=== PATIENT | female | born 1945 | race Two or more races ===

== ENCOUNTER → 2020-01-18 13:57 | Outpatient (CLI) | payer OTHER ==
[~2020-01-18 13:57] MED LIST: CRESTOR20 MG PO; METFORMIN HCL500 M3 PO; ULTRAM50 MG PO; ZESTRIL20 MG PO
== END | disposition home or self-care (01) ==
LOC: LAB 13:57
PROVIDERS: ATTEND Surgery
DX: Z03.818 Encounter for observation for suspected exposure to other biological agents ruled out (principal); C20 Malignant neoplasm of rectum; K92.2 Gastrointestinal hemorrhage, unspecified

== ENCOUNTER 2020-01-25 06:10 | Day surgery (SDC) | payer OTHER ==
[~2020-01-25 06:10] MED LIST changes: -ULTRAM50 MG PO
[2020-01-25] MEDS ORDERED: ULTRAM50 MG PO (14:29)
== END 2020-01-25 15:50 | disposition home or self-care (01) ==
LOC: CIR.AMB 06:10
PROVIDERS: ATTEND Surgery
DX: C20 Malignant neoplasm of rectum (principal)
CPT/HCPCS: 36561; C1751

== ENCOUNTER 2020-08-11 11:30 | Inpatient (IN) | payer OTHER ==
[~2020-08-11] VITALS: Ht 160 cm; Wt 71.7 kg
[~2020-08-11 11:30] MED LIST changes: +ULTRAM50 MG PO
[2020-08-25] MEDS ORDERED: ULTRAM50 MG PO (09:08)
[2020-08-25] MEDS ORDERED: KETO10TA2 PO (09:09)
== END 2020-08-25 11:29 | disposition home or self-care (01) | DRG 331 ==
LOC: SURH 08-17 11:00 → O/R 08-22 06:25 → SURH 08-22 13:47
PROVIDERS: ADMIT Surgery; ATTEND Surgery
PROC: 0DBP7ZZ Excision of Rectum, Via Natural or Artificial Opening (ICD-10-PCS; 2020-08-22)
PROC: 0DJD8ZZ Inspection of Lower Intestinal Tract, Via Natural or Artificial Opening Endoscopic (ICD-10-PCS; 2020-08-22)
PROC: 0D1B4Z4 Bypass Ileum to Cutaneous, Percutaneous Endoscopic Approach (ICD-10-PCS; principal; 2020-08-22 07:00)
DX: C20 Malignant neoplasm of rectum (principal); K59.09 Other constipation

== ENCOUNTER 2020-08-22 06:14 | Outpatient (CLI) | payer OTHER | END 2020-08-22 18:50 | disposition home or self-care (01) | LOC: LAB 06:14 | PROVIDERS: ATTEND Surgery | DX: C20 Malignant neoplasm of rectum (principal); K92.2 Gastrointestinal hemorrhage, unspecified; K59.09 Other constipation ==

== ENCOUNTER 2021-01-02 12:15 | Inpatient (IN) | payer OTHER ==
[~2021-01-02] VITALS: Ht 160 cm; Wt 72.1 kg
[~2021-01-02 12:15] MED LIST changes: +KETO10TA2 PO
[2021-01-19] MEDS ORDERED: NEURONTIN300 MG PO (10:27)
[2021-01-19] MEDS ORDERED: ULTRAM50 MG PO (10:27)
[2021-01-19] MEDS ORDERED: INTESTINEX680 M1 PO (10:28)
== END 2021-01-19 11:28 | disposition home or self-care (01) | DRG 349 ==
LOC: ADM 12:15 → EDSTATUS 01-12 12:30 → ADM 01-12 12:30 → SURG 01-16 05:23 → O/R 01-16 05:23 → SURG 01-16 11:24 → SURH 01-16 12:30 → SURG 01-19 11:28
PROVIDERS: ADMIT Surgery; ATTEND Surgery
PROC: 0D7Q8ZZ Dilation of Anus, Via Natural or Artificial Opening Endoscopic (ICD-10-PCS; 2021-01-16)
PROC: 3E0F7SF Introduction of Other Gas into Respiratory Tract, Via Natural or Artificial Opening (ICD-10-PCS; 2021-01-16)
PROC: 0DBB4ZZ Excision of Ileum, Percutaneous Endoscopic Approach (ICD-10-PCS; principal; 2021-01-16 11:15)
DX: C20 Malignant neoplasm of rectum (principal); K62.4 Stenosis of anus and rectum; E11.9 Type 2 diabetes mellitus without complications; Z79.4 Long term (current) use of insulin; I10 Essential (primary) hypertension; E78.00 Pure hypercholesterolemia, unspecified; F43.20 Adjustment disorder, unspecified

== ENCOUNTER 2021-04-06 16:48 | Inpatient (IN) | payer OTHER ==
[~2021-04-06] VITALS: Ht 162.6 cm; Wt 72.6 kg
[~2021-04-06 16:48] MED LIST changes: +INTESTINEX680 M1 PO; +NEURONTIN300 MG PO
[2021-04-07] MEDS ORDERED: ALLOPURINOL100 MG (08:21)
[2021-04-07] MEDS ORDERED: ULTRAM50 MG PO (17:08)
[2021-04-07] MEDS ORDERED: XARELTO15 MG PO (17:09)
== END 2021-04-07 19:20 | disposition home or self-care (01) | DRG 300 ==
LOC: ER 16:48 → SURG 18:27 → SURH 18:27
PROVIDERS: ADMIT Surgery; ATTEND Surgery
PROC: 0JPV0WZ Removal of Totally Implantable Vascular Access Device from Upper Extremity Subcutaneous Tissue and Fascia, Open Approach (ICD-10-PCS; principal; 2021-04-06)
DX: I82.601 Acute embolism and thrombosis of unspecified veins of right upper extremity (principal); I87.1 Compression of vein; T82.868A Thrombosis due to vascular prosthetic devices, implants and grafts, initial encounter; C20 Malignant neoplasm of rectum; Y65.8 Other specified misadventures during surgical and medical care; Y92.018 Other place in single-family (private) house as the place of occurrence of the external cause; Z20.822 Contact with and (suspected) exposure to COVID-19; I10 Essential (primary) hypertension; E11.9 Type 2 diabetes mellitus without complications; Z79.4 Long term (current) use of insulin

== ENCOUNTER 2022-09-07 09:04 | Inpatient (IN) | payer OTHER ==
[~2022-09-07] VITALS: Ht 160 cm; Wt 66.7 kg
[~2022-09-07 09:04] MED LIST changes: +ALLOPURINOL100 MG; +XARELTO15 MG PO
[2022-09-10] MEDS ORDERED: CAMPTOSAR40 MG/2 ML IV (13:44)
[2022-09-10] MEDS ORDERED: XELODA150 MG PO (13:44)
[2022-09-10] MEDS ORDERED: ATIVAN0.5 M1 PO (13:45)
[2022-09-10] MEDS ORDERED: PEPCID40 MG PO (13:45)
[2022-09-10] MEDS ORDERED: ZOLOFT25 MG PO (13:45)
[2022-09-10] MEDS ORDERED: ZOFRAN8 MG PO ×2 (13:46)
[2022-09-13] MEDS ORDERED: HYOSCYAMINE0.125 M1 SL (18:18)
[2022-09-13] MEDS ORDERED: TRAM1TAB98 PO (18:18)
[2022-09-13] MEDS ORDERED: INTESTINEX680 M1 PO (18:18)
== END 2022-09-13 19:16 | disposition home or self-care (01) | DRG 330 ==
LOC: SURH 09-12 07:54 → O/R 09-12 07:54 → SURH 09-12 10:15
PROVIDERS: ADMIT Surgery; ATTEND Surgery
PROC: 0D1E4Z4 Bypass Large Intestine to Cutaneous, Percutaneous Endoscopic Approach (ICD-10-PCS; principal; 2022-09-12 10:45)
DX: K56.609 Unspecified intestinal obstruction, unspecified as to partial versus complete obstruction (principal); C20 Malignant neoplasm of rectum; N82.3 Fistula of vagina to large intestine; E11.9 Type 2 diabetes mellitus without complications; I10 Essential (primary) hypertension; E78.00 Pure hypercholesterolemia, unspecified; F43.20 Adjustment disorder, unspecified; Z93.3 Colostomy status; Z20.822 Contact with and (suspected) exposure to COVID-19

== ENCOUNTER 2023-09-30 08:02 | Inpatient (IN) | payer OTHER ==
[~2023-09-30] VITALS: Ht 160 cm; Wt 58.1 kg
[~2023-09-30 08:02] MED LIST changes: +ATIVAN0.5 M1 PO; +CAMPTOSAR40 MG/2 ML IV; +HYOSCYAMINE0.125 M1 SL; +PEPCID40 MG PO; +TRAM1TAB98 PO; +XELODA150 MG PO; +ZOFRAN8 MG PO; +ZOLOFT25 MG PO
[2023-09-30] MEDS ORDERED: 0.9 % SODIUM CHLORIDE 1,000 ML IV SCH (08:25)
[2023-09-30 09:38] LABS: HEMATOCRIT 25.1 % (36.0-45.00); MEAN CELL VOLUME 96.2 fL (80.00-100.00); MEAN CORPUSCULAR HGB CONC 33.6 g/dl (32.0-36.0); PLATELET COUNT 268 K/uL (150-450)
[2023-09-30] MEDS ORDERED: DEXTROSE 50 % IN WATER 0.5 G/ML DISP.SYRIN IV PRN ×2 (10:00→19:15)
[2023-09-30] MEDS ORDERED: MORPHINE SULFATE 4 MG/ML CARTRIDGE IV PRN (10:00)
[2023-09-30] MEDS ORDERED: OxyCODONE HCL 5 MG TABLET (ROXICODONE) PO PRN (10:00)
[2023-09-30] MEDS ORDERED: ONDANSETRON HCL 2 MG/ML VIAL IV PRN ×2 (10:00→19:15)
[2023-09-30] MEDS ORDERED: RINGERS SOLUTION,LACTATED 1,000 ML IV SCH (10:00)
[2023-09-30 10:06] LABS: INR 1.16
[2023-09-30 10:10] LABS: CALCIUM 9.1 mg/dL (8.5-10.1); CREATININE SERUM 0.31 mg/dL (0.55-1.02); GFR 207.16; POTASSIUM 4.14 mEq/L (3.5-5.1)
[2023-09-30 10:56] LABS: HEMOGLOBIN 8.4 g/dL (12.0-15.00); MEAN CORPUSCULAR HEMOGLOBIN 32.3 pg (27.00-32.0); RED CELL DISTRIBUTION WIDTH 20.6 % (11.5-14.5)
[2023-09-30] MEDS ORDERED: HYOSCYAMINE SULFATE 0.125 MG TAB.SUBL SL SCH (13:00)
[2023-09-30] MEDS ORDERED: ACETAMINOPHEN 500 MG GEL..CAP PO SCH (14:00)
[2023-09-30 16:36] LABS: URINE APPEARANCE Cloudy; URINE BILIRRUBIN Negative (NEGATIVE); URINE BLOOD Small; URINE COLOR Dark Yellow; URINE GLUCOSE Negative (NEGATIVE); URINE LEUKOCYTE Trace; URINE NITRATE Negative
[2023-09-30 16:40] LABS: URINE BACTERIA 3138.5 uL (0.0-1933); URINE CAST 1.83 uL (0.0-1.40); URINE EPITHELIAL CELLS 26.9 uL (0.0-38.8)
[2023-09-30] MEDS ORDERED: METRONIDAZOLE/SODIUM CHLORIDE 500 MG/100 ML PIGGYBACK IV SCH (17:00)
[2023-09-30] MEDS ORDERED: POLYETHYLENE GLYCOL 3350 17 GM BLIST.PACK PO SCH (17:00)
[2023-09-30] MEDS ORDERED: GABAPENTIN 300 MG CAPSULE PO SCH (17:00)
[2023-09-30 17:22] LABS: URINE CRYSTALS FEW /HPF; URINE KETONE 80 (NEGATIVE); URINE MUCUS SCANT; URINE PROTEIN 100 (NEGATIVE)
[2023-09-30] MEDS ORDERED: PANTOPRAZOLE SODIUM 40 MG/VIAL VIAL IV PUSH SCH (19:13)
[2023-09-30] MEDS ORDERED: INSULIN LISPRO 1,000 UNIT/10 ML UNITS SUBCUTANEO PRN (19:15)
[2023-09-30] MEDS ORDERED: ENALAPRILAT DIHYDRATE 1.25 MG/ML VIAL IV PRN (19:15)
[2023-09-30] MEDS ORDERED: CIPROFLOXACIN IN 5 % DEXTROSE 400 MG/200 ML PIGGYBAG IV SCH (21:00)
[2023-09-30] MEDS ORDERED: FAMOTIDINE/PF 20 MG/2 ML VIAL IV PUSH SCH (21:00)
[2023-10-01 07:56] LABS: MEAN CELL VOLUME 97.4 fL (80.00-100.00); MEAN CORPUSCULAR HGB CONC 34.3 g/dl (32.0-36.0); PLATELET COUNT 263 K/uL (150-450); RED BLOOD COUNT 2.35 M/uL (4.00-6.00); RED CELL DISTRIBUTION WIDTH 20.7 % (11.5-14.5)
[2023-10-01 08:15] LABS: HEMATOCRIT 22.9 % (36.0-45.00); MEAN CORPUSCULAR HEMOGLOBIN 33.1 pg (27.00-32.0)
[2023-10-01 08:16] LABS: HEMOGLOBIN 7.8 g/dL (12.0-15.00)
[2023-10-01 08:59] LABS: ALBUMIN 2.3 gm/dL (3.4-5.0); CALCIUM 8.4 mg/dL (8.5-10.1); CREATININE SERUM 0.27 mg/dL (0.55-1.02); GFR 242.96; PHOSPHOROUS 2.8 mg/dL (2.5-4.9); POTASSIUM 4.04 mEq/L (3.5-5.1)
[2023-10-01] MEDS ORDERED: ENOXAPARIN SODIUM 40 MG/0.4 ML SYRINGE SUBCUTANEO SCH (17:00)
[2023-10-01] MEDS ORDERED: CYANOCOBALAMIN (VITAMIN B-12) 1,000 MCG/ML VIAL IM SCH (17:33)
[2023-10-01] MEDS ORDERED: SOD FERRIC GLUC COMPLX/SUCROSE 62.5 MG in 0.9 % SODIUM CHLORIDE 50 ML IV SCH (18:32)
[2023-10-01] MEDS ORDERED: FOLIC ACID 1 MG TABLET PO SCH (18:33)
[2023-10-02] MEDS ORDERED: CIPROFLOXACIN IN 5 % DEXTROSE 400 MG/200 ML PIGGYBAG IV SCH (09:00)
[2023-10-02] MEDS ORDERED: ENOXAPARIN SODIUM 40 MG/0.4 ML SYRINGE SUBCUTANEO SCH (09:00)
[2023-10-02] MEDS ORDERED: METRONIDAZOLE/SODIUM CHLORIDE 500 MG/100 ML PIGGYBACK IV SCH (09:00)
[2023-10-02] MEDS ORDERED: fentaNYL 25 MCG PATCH.TD72 TD SCH (20:30)
[2023-10-02] MEDS ORDERED: METOCLOPRAMIDE HCL 5 MG/ML VIAL IV SCH (21:00)
[2023-10-02] MEDS ORDERED: PANTOPRAZOLE SODIUM 40 MG/VIAL VIAL IV PUSH SCH (21:00)
[2023-10-03] MEDS ORDERED: GABAPENTIN 400 MG CAPSULE PO SCH (09:00)
[2023-10-03 10:33] LABS: HEMATOCRIT 32.8 % (36.0-45.00); HEMOGLOBIN 11.2 g/dL (12.0-15.00); MEAN CELL VOLUME 92.3 fL (80.00-100.00); MEAN CORPUSCULAR HEMOGLOBIN 31.5 pg (27.00-32.0); MEAN CORPUSCULAR HGB CONC 34.1 g/dl (32.0-36.0); PLATELET COUNT 268 K/uL (150-450); RED BLOOD COUNT 3.56 M/uL (4.00-6.00); RED CELL DISTRIBUTION WIDTH 19.2 % (11.5-14.5)
[2023-10-04 05:58] LABS: ALBUMIN 2.2 gm/dL (3.4-5.0); BILIRUBIN TOTAL 0.67 mg/dL (0.3-1.2); CALCIUM 8.2 mg/dL (8.5-10.1); CREATININE SERUM 0.3 mg/dL (0.55-1.02); GFR 215.15; GLOBULINA 3.5 G/DL (2.4-3.5); MAGNESIUM 1.7 mg/dL (1.8-2.4); POTASSIUM 3.96 mEq/L (3.5-5.1); TOTAL PROTEIN 5.7 gm/dL (6.4-8.2)
[2023-10-04] MEDS ORDERED: MAGNESIUM SULFATE IN WATER 50 ML IV NR (09:00)
[2023-10-04] MEDS ORDERED: AA 4.25%/CALCIUM/LYTES/DEX 10% 1,000 ML CENTRAL SCH (17:00)
[2023-10-04] MEDS ORDERED: MEPERIDINE HCL/PF 25 MG/ML VIAL IV PRN (20:00)
[2023-10-05 08:14] LABS: CHOL HDL RATIO 3.7 (0-5.0); CREATININE SERUM 0.31 mg/dL (0.55-1.02); GFR 207.16; POTASSIUM 3.95 mEq/L (3.5-5.1)
[2023-10-05] MEDS ORDERED: POLYETHYLENE GLYCOL 3350 17 GM BLIST.PACK PO NR (10:00)
[2023-10-05] MEDS ORDERED: MAGNESIUM HYDROXIDE 30 ML BLIST.PACK PO NR (10:00)
[2023-10-05] MEDS ORDERED: GABAPENTIN 600 MG TABLET PO SCH (17:00)
[2023-10-05] MEDS ORDERED: fentaNYL 25 MCG PATCH.TD72 TD SCH (17:15)
[2023-10-06] MEDS ORDERED: AA 4.25%/CAL/LYTES/DEXT 5% 1,000 ML PERIFERAL SCH (17:00)
[2023-10-06] MEDS ORDERED: ENOXAPARIN SODIUM 60 MG/0.6 ML SYRINGE SUBCUTANEO ONE (18:47)
[2023-10-06] MEDS ORDERED: ENOXAPARIN SODIUM 40 MG/0.4 ML SYRINGE SUBCUTANEO SCH (21:00)
[2023-10-06] MEDS ORDERED: LORazepam 0.5 MG TABLET PO SCH (21:00)
[2023-10-06] MEDS ORDERED: ENOXAPARIN SODIUM 60 MG/0.6 ML SYRINGE SUBCUTANEO SCH (21:00)
[2023-10-07] MEDS ORDERED: DIATRIZOATE MEGLUMINE, SODIUM 30 ML BOTTLE PO NR (08:30)
[2023-10-07] MEDS ORDERED: DIPHENHYDRAMINE HCL 50 MG/ML VIAL 1ML IV SCH (09:00)
[2023-10-07] MEDS ORDERED: METHYLPREDNISOLONE SOD SUCC 125 MG VIAL IV SCH (09:00)
[2023-10-07] MEDS ORDERED: SERTRALINE HCL 25 MG TABLET PO SCH (12:00)
[2023-10-07 18:12] LABS: HEMATOCRIT 35.5 % (36.0-45.00); HEMOGLOBIN 11.9 g/dL (12.0-15.00); MEAN CORPUSCULAR HEMOGLOBIN 31.4 pg (27.00-32.0); MEAN CORPUSCULAR HGB CONC 33.4 g/dl (32.0-36.0); PLATELET COUNT 321 K/uL (150-450); RED BLOOD COUNT 3.77 M/uL (4.00-6.00); RED CELL DISTRIBUTION WIDTH 19.9 % (11.5-14.5)
[2023-10-07 18:32] LABS: ALBUMIN 2.1 gm/dL (3.4-5.0); BILIRUBIN TOTAL 0.38 mg/dL (0.3-1.2); BILIRUBIN,CONJUGATED 0.19 mg/dL (0.0-0.2); BILIRUBIN,UNCONJUGATED 0.19 mg/dL (0.0-0.6); CHOL HDL RATIO 3.6 (0-5.0); INR 1.37; PROTHROMBIN TIME 14.1 SECONDS (9.0-11.5); TOTAL PROTEIN 5.4 gm/dL (6.4-8.2)
[2023-10-07 18:34] LABS: ALBUMIN 2.1 gm/dL (3.4-5.0); BILIRUBIN TOTAL 0.38 mg/dL (0.3-1.2); CALCIUM 7.9 mg/dL (8.5-10.1); GFR 232.99; GLOBULINA 3.3 G/DL (2.4-3.5); MAGNESIUM 2.1 mg/dL (1.8-2.4); POTASSIUM 4.22 mEq/L (3.5-5.1); TOTAL PROTEIN 5.4 gm/dL (6.4-8.2)
[2023-10-07 18:42] LABS: UREA CLEARANCE 12.5 ML/MIN
[2023-10-07 18:42] LABS: CREATININE SERUM 0.28 mg/dL (0.55-1.02)
[2023-10-07 19:10] LABS: PARTIAL THROMBOPLASTIN TIME 41.2 SECONDS (22.0-34.0)
[2023-10-08] MEDS ORDERED: AMINO ACIDS 4.25 %/DEXTROSE 5% 1,000 ML PERIFERAL SCH (17:00)
[2023-10-08] MEDS ORDERED: LORazepam 2 MG/ML VIAL IV SCH (21:30)
[2023-10-08] MEDS ORDERED: LORazepam 2 MG/ML VIAL ONE (22:21)
[2023-10-09] MEDS ORDERED: fentaNYL 25 MCG PATCH.TD72 TD SCH (11:00)
[2023-10-09] MEDS ORDERED: DIPHENHYDRAMINE HCL 50 MG/ML VIAL 1ML IV PRN (20:15)
[2023-10-09] MEDS ORDERED: NALOXONE HCL 0.4 MG/ML AMPUL IV PRN (20:15)
[2023-10-09] MEDS ORDERED: ONDANSETRON HCL 2 MG/ML VIAL IV PRN (20:15)
[2023-10-10 08:36] LABS: HEMOGLOBIN 11.7 g/dL (12.0-15.00); MEAN CELL VOLUME 96.3 fL (80.00-100.00); MEAN CORPUSCULAR HEMOGLOBIN 32.2 pg (27.00-32.0); MEAN CORPUSCULAR HGB CONC 33.5 g/dl (32.0-36.0); PLATELET COUNT 353 K/uL (150-450); RED BLOOD COUNT 3.63 M/uL (4.00-6.00); RED CELL DISTRIBUTION WIDTH 20.2 % (11.5-14.5)
[2023-10-10 09:36] LABS: BILIRUBIN TOTAL 0.57 mg/dL (0.3-1.2); CALCIUM 7.6 mg/dL (8.5-10.1); GFR 364.47; GLOBULINA 2.8 G/DL (2.4-3.5); PHOSPHOROUS 2.1 mg/dL (2.5-4.9); POTASSIUM 3.84 mEq/L (3.5-5.1); TOTAL PROTEIN 4.8 gm/dL (6.4-8.2)
[2023-10-10 10:08] LABS: CREATININE SERUM 0.19 mg/dL (0.55-1.02)
[2023-10-10] MEDS ORDERED: POTASSIUM PHOS,M-BASIC-D-BASIC 15 MM in 0.9 % SODIUM CHLORIDE 250 ML IV NR (14:00)
[2023-10-11] MEDS ORDERED: METRONIDAZOLE/SODIUM CHLORIDE 500 MG/100 ML PIGGYBACK IV SCH (09:00)
[2023-10-11] MEDS ORDERED: fentaNYL 25 MCG PATCH.TD72 TD SCH (09:00)
[2023-10-11 09:03] LABS: HEMOGLOBIN 11.3 g/dL (12.0-15.00); MEAN CELL VOLUME 94.7 fL (80.00-100.00); MEAN CORPUSCULAR HEMOGLOBIN 31.5 pg (27.00-32.0); MEAN CORPUSCULAR HGB CONC 33.3 g/dl (32.0-36.0); PLATELET COUNT 330 K/uL (150-450); RED BLOOD COUNT 3.59 M/uL (4.00-6.00); RED CELL DISTRIBUTION WIDTH 20.5 % (11.5-14.5)
[2023-10-11] MEDS ORDERED: PHENOL 177 ML BOTTLE MM ONE (09:15)
[2023-10-11 09:35] LABS: ALBUMIN 1.9 gm/dL (3.4-5.0); BILIRUBIN TOTAL 0.68 mg/dL (0.3-1.2); CALCIUM 7.6 mg/dL (8.5-10.1); GFR 343.53; GLOBULINA 3.1 G/DL (2.4-3.5); MAGNESIUM 1.8 mg/dL (1.8-2.4); PHOSPHOROUS 2.6 mg/dL (2.5-4.9); POTASSIUM 3.68 mEq/L (3.5-5.1)
[2023-10-11 09:39] LABS: CREATININE SERUM 0.2 mg/dL (0.55-1.02)
[2023-10-11] MEDS ORDERED: CIPROFLOXACIN IN 5 % DEXTROSE 200 ML IV SCH (12:00)
[2023-10-11] MEDS ORDERED: fentaNYL 50 MCG PATCH.TD72 TD SCH ×2 (12:00→14:30)
[2023-10-11] MEDS ORDERED: METRONIDAZOLE/SODIUM CHLORIDE 100 ML IV SCH (17:00)
[2023-10-11] MEDS ORDERED: 0.9 % SODIUM CHLORIDE 1,000 ML IV SCH (17:15)
[2023-10-11] MEDS ORDERED: GABAPENTIN 600 MG TABLET PO STA (21:02)
[2023-10-12] MEDS ORDERED: fentaNYL 50 MCG PATCH.TD72 TD SCH (11:00)
[2023-10-12] MEDS ORDERED: DIPHENHYDRAMINE HCL 150 MG,MAG HYDROX/ALUMINUM HYD/SIMETH 60 ML,LIDOCAINE HCL 60 ML PO SCH (13:00)
[2023-10-12] MEDS ORDERED: GABAPENTIN 600 MG TABLET PO SCH (13:00)
[2023-10-12] MEDS ORDERED: PANTOPRAZOLE SODIUM 40 MG/VIAL VIAL IV STA (14:05)
[2023-10-13] MEDS ORDERED: PANTOPRAZOLE SODIUM 40 MG/VIAL VIAL IV SCH (09:00)
[2023-10-13 11:08] LABS: HEMATOCRIT 32.6 % (36.0-45.00); HEMOGLOBIN 10.9 g/dL (12.0-15.00); MEAN CELL VOLUME 95.5 fL (80.00-100.00); MEAN CORPUSCULAR HEMOGLOBIN 31.9 pg (27.00-32.0); MEAN CORPUSCULAR HGB CONC 33.4 g/dl (32.0-36.0); PLATELET COUNT 327 K/uL (150-450); RED BLOOD COUNT 3.42 M/uL (4.00-6.00); RED CELL DISTRIBUTION WIDTH 20.6 % (11.5-14.5)
[2023-10-13 11:14] LABS: ALBUMIN 1.7 gm/dL (3.4-5.0); BILIRUBIN TOTAL 0.54 mg/dL (0.3-1.2); CALCIUM 7.6 mg/dL (8.5-10.1); GFR 444.4; GLOBULINA 2.8 G/DL (2.4-3.5); MAGNESIUM 1.6 mg/dL (1.8-2.4); PHOSPHOROUS 2.2 mg/dL (2.5-4.9); POTASSIUM 3.45 mEq/L (3.5-5.1); TOTAL PROTEIN 4.5 gm/dL (6.4-8.2)
[2023-10-13 11:21] LABS: CREATININE SERUM 0.16 mg/dL (0.55-1.02)
[2023-10-13] MEDS ORDERED: MAGNESIUM SULFATE IN WATER 50 ML IV STA (14:22)
[2023-10-13] MEDS ORDERED: POTASSIUM CHLORIDE 20MEQ/100ML H2O PB IV NR (14:30)
[2023-10-13] MEDS ORDERED: POTASSIUM PHOS,M-BASIC-D-BASIC 18 MM in 0.9 % SODIUM CHLORIDE 250 ML IV NR (14:30)
[2023-10-14 13:08] LABS: HEMATOCRIT 31.5 % (36.0-45.00); HEMOGLOBIN 10.7 g/dL (12.0-15.00); MEAN CELL VOLUME 96.1 fL (80.00-100.00); MEAN CORPUSCULAR HEMOGLOBIN 32.8 pg (27.00-32.0); MEAN CORPUSCULAR HGB CONC 34.1 g/dl (32.0-36.0); PLATELET COUNT 304 K/uL (150-450); RED BLOOD COUNT 3.27 M/uL (4.00-6.00); RED CELL DISTRIBUTION WIDTH 21.1 % (11.5-14.5)
[2023-10-14 13:18] LABS: INR 1.03; PROTHROMBIN TIME 10.8 SECONDS (9.0-11.5)
[2023-10-14 13:20] LABS: PARTIAL THROMBOPLASTIN TIME 42.3 SECONDS (22.0-34.0)
[2023-10-14] MEDS ORDERED: MAG HYDROX/ALUMINUM HYD/SIMETH 30 ML BLIST.PACK PO ONE ×2 (13:37→15:45)
[2023-10-14 13:51] LABS: ALBUMIN 1.6 gm/dL (3.4-5.0); BILIRUBIN TOTAL 0.44 mg/dL (0.3-1.2); BILIRUBIN,CONJUGATED 0.17 mg/dL (0.0-0.2); BILIRUBIN,UNCONJUGATED 0.27 mg/dL (0.0-0.6); CALCIUM 7.7 mg/dL (8.5-10.1); CHOL HDL RATIO 4.4 (0-5.0); GFR 278.34; MAGNESIUM 1.8 mg/dL (1.8-2.4); PHOSPHOROUS 2.1 mg/dL (2.5-4.9); POTASSIUM 3.62 mEq/L (3.5-5.1); TOTAL PROTEIN 4.7 gm/dL (6.4-8.2)
[2023-10-14 14:06] LABS: UREA CLEARANCE 16.6 ML/MIN
[2023-10-14 14:07] LABS: CREATININE SERUM 0.24 mg/dL (0.55-1.02)
[2023-10-14] MEDS ORDERED: POTASSIUM PHOS,M-BASIC-D-BASIC 15 MM in 0.9 % SODIUM CHLORIDE 250 ML IV NR (17:00)
[2023-10-15] MEDS ORDERED: MAG HYDROX/ALUMINUM HYD/SIMETH 30 ML BLIST.PACK PO ONE ×2 (00:35→23:58)
[2023-10-15] MEDS ORDERED: fentaNYL 25 MCG PATCH.TD72 TD SCH (09:00)
[2023-10-15] MEDS ORDERED: ONDANSETRON HCL 2 MG/ML VIAL IV PRN (19:45)
[2023-10-15] MEDS ORDERED: METOCLOPRAMIDE HCL 10 MG in 0.9 % SODIUM CHLORIDE 50 ML IV ONE (19:45)
[2023-10-15] MEDS ORDERED: LORazepam 2 MG/ML VIAL IV SCH (21:00)
[2023-10-16] MEDS ORDERED: CHLORHEXIDINE GLUCONATE 120 ML BOTTLE TOP ONE (15:17)
[2023-10-16] MEDS ORDERED: MIDAZOLAM HCL 2 MG/2 ML VIAL IV ONE (16:00)
[2023-10-16] MEDS ORDERED: DIPHENHYDRAMINE HCL 50 MG/ML VIAL 1ML IV ONE (16:00)
[2023-10-16] MEDS ORDERED: MAG HYDROX/ALUMINUM HYD/SIMETH 30 ML BLIST.PACK PO ONE (23:13)
[2023-10-17] MEDS ORDERED: NYSTATIN 100,000 UNITS/ML ML PO SCH (13:00)
[2023-10-17] MEDS ORDERED: MAG HYDROX/ALUMINUM HYD/SIMETH 30 ML BLIST.PACK PO ONE ×2 (15:40→23:51)
[2023-10-19 09:51] LABS: ANION GAP 16 (10.0-20.0); BLOOD UREA NITROGEN 12 mg/dL (7-18); CALCIUM 7.2 mg/dL (8.5-10.1); CARBON DIOXIDE 23 mEq/L (21-32); CHLORIDE 96 mmol/L (98-107); GLUCOSE FASTING 111 mg/dL (65-100); OSMOLALITY SERUM 263 MOSM/KG (275-295); POTASSIUM 4.19 mEq/L (3.5-5.1); SODIUM 131 mmol/L (136-145)
[2023-10-19 10:00] LABS: BUN CREA RATIO 80 (7.0-25.0); CREATININE SERUM < 0.15 mg/dL (0.55-1.02); GFR 478.81
[2023-10-19 11:03] LABS: HEMATOCRIT 31.8 % (36.0-45.00); HEMOGLOBIN 10.5 g/dL (12.0-15.00); MEAN CELL VOLUME 95.1 fL (80.00-100.00); MEAN CORPUSCULAR HEMOGLOBIN 31.5 pg (27.00-32.0); MEAN CORPUSCULAR HGB CONC 33.1 g/dl (32.0-36.0); RED BLOOD COUNT 3.34 M/uL (4.00-6.00); RED CELL DISTRIBUTION WIDTH 20.1 % (11.5-14.5)
[2023-10-19 11:42] LABS: PLATELET COUNT 112 K/uL (150-450)
[2023-10-19] MEDS ORDERED: MAG HYDROX/ALUMINUM HYD/SIMETH 30 ML BLIST.PACK PO ONE (15:29)
[2023-10-20] MEDS ORDERED: MAG HYDROX/ALUMINUM HYD/SIMETH 30 ML BLIST.PACK PO ONE (08:40)
[2023-10-21 09:18] LABS: HEMATOCRIT 30.8 % (36.0-45.00); HEMOGLOBIN 10.4 g/dL (12.0-15.00); MEAN CELL VOLUME 95.8 fL (80.00-100.00); MEAN CORPUSCULAR HEMOGLOBIN 32.3 pg (27.00-32.0); MEAN CORPUSCULAR HGB CONC 33.7 g/dl (32.0-36.0); PLATELET COUNT 285 K/uL (150-450); RED BLOOD COUNT 3.22 M/uL (4.00-6.00)
[2023-10-21 09:30] LABS: PARTIAL THROMBOPLASTIN TIME 31.8 SECONDS (22.0-34.0); PROTHROMBIN TIME 10.5 SECONDS (9.0-11.5)
[2023-10-21 09:42] LABS: ALBUMIN 1.4 gm/dL (3.4-5.0); ALKALINE PHOSPHATASE 117 U/L (50-136); ALT/SGPT 6 U/L (12-78); ANION GAP 12 (10.0-20.0); AST/SGOT 14 U/L (15-37); BILIRUBIN TOTAL 0.44 mg/dL (0.3-1.2); BILIRUBIN,CONJUGATED 0.17 mg/dL (0.0-0.2); BILIRUBIN,UNCONJUGATED 0.27 mg/dL (0.0-0.6); BLOOD UREA NITROGEN 13 mg/dL (7-18); CALCIUM 7.9 mg/dL (8.5-10.1); CARBON DIOXIDE 27 mEq/L (21-32); CHLORIDE 94 mmol/L (98-107); CHOL HDL RATIO 4.5 (0-5.0); CHOLESTEROL 136 mg/dL (0-200); GLOBULINA 2.8 G/DL (2.4-3.5); GLUCOSE FASTING 119 mg/dL (65-100); HDL 30 mg/dl (40-60); LDL 85 mg/dl (0-130); OSMOLALITY SERUM 262 MOSM/KG (275-295); POTASSIUM 3.18 mEq/L (3.5-5.1); SODIUM 130 mmol/L (136-145); TOTAL PROTEIN 4.2 gm/dL (6.4-8.2); TRIGLYCERIDES 107 mg/dL (0-150); VLDL 21 (0-39)
[2023-10-21 09:47] LABS: BUN CREA RATIO 86 (7.0-25.0); CREATININE SERUM < 0.15 mg/dL (0.55-1.02); GFR 478.81
[2023-10-21] MEDS ORDERED: HYOSCYAMINE0.125 M1 SL (12:28)
[2023-10-21] MEDS ORDERED: ATIVAN1 M1 PO (12:28)
[2023-10-21] MEDS ORDERED: NEURONTIN600 MG PO (12:28)
[2023-10-21] MEDS ORDERED: FENTANYL1 EAC4 TD (12:29)
[2023-10-21] MEDS ORDERED: NYSTATIN100000 UNI PO (12:31)
[2023-10-21] MEDS ORDERED: METRONIDAZOLE500 MG PO (12:32)
[2023-10-21] MEDS ORDERED: LORazepam 2 MG/ML VIAL IV SCH (21:00)
== END 2023-10-21 14:28 | disposition home or self-care (01) | DRG 389 ==
LOC: ER 08:02 → SEC-K 10:29 → SURH 10:29
PROVIDERS: Emergency Medicine; Internal Medicine; Surgery; ADMIT Surgery; ATTEND Surgery
PROC: B246ZZZ Ultrasonography of Right and Left Heart (ICD-10-PCS; 2023-09-30)
PROC: 30233N1 Transfusion of Nonautologous Red Blood Cells into Peripheral Vein, Percutaneous Approach (ICD-10-PCS; 2023-10-01)
PROC: 02HV33Z Insertion of Infusion Device into Superior Vena Cava, Percutaneous Approach (ICD-10-PCS; principal; 2023-10-04)
PROC: B54MZZZ Ultrasonography of Right Upper Extremity Veins (ICD-10-PCS; 2023-10-05)
PROC: B54NZZZ Ultrasonography of Left Upper Extremity Veins (ICD-10-PCS; 2023-10-07)
PROC: BW21YZZ Computerized Tomography (CT Scan) of Abdomen and Pelvis using Other Contrast (ICD-10-PCS; 2023-10-08)
PROC: 0DP68UZ Removal of Feeding Device from Stomach, Via Natural or Artificial Opening Endoscopic (ICD-10-PCS; 2023-10-16)
PROC: 0DH63UZ Insertion of Feeding Device into Stomach, Percutaneous Approach (ICD-10-PCS; 2023-10-16)
DX: K56.699 Other intestinal obstruction unspecified as to partial versus complete obstruction (principal); C20 Malignant neoplasm of rectum; I82.622 Acute embolism and thrombosis of deep veins of left upper extremity; E11.9 Type 2 diabetes mellitus without complications; Z79.4 Long term (current) use of insulin; I10 Essential (primary) hypertension; D64.89 Other specified anemias